=== PATIENT | female | born 1985 | race Caucasian/White ===

== ENCOUNTER → 2024-02-05 10:03 | Outpatient (REF) | payer OTHER, SELFPAY | LOC: WDC 10:03 | PROVIDERS: ATTENDING PHYSICIAN Student in an Organized Health Care Education/Training Program | DX: N64.89 Other specified disorders of breast (principal) | CPT/HCPCS: 76642 ==

== ENCOUNTER 2024-05-21 06:19 | Day surgery (SDC) | payer OTHER, SELFPAY | END 2024-05-21 10:55 | disposition home or self-care (01) | LOC: GI 06:19 | PROVIDERS: ATTENDING PHYSICIAN Internal Medicine | DX: R19.4 Change in bowel habit (principal); K92.1 Melena; K64.8 Other hemorrhoids | CPT/HCPCS: 45380; 88305 ==

== ENCOUNTER 2024-07-28 08:51 | Emergency (ER) | payer OTHER, SELFPAY ==
[2024-07-28 08:55] VITALS: BP 121/81
--- NOTE | 2024-07-28 09:15 | ED.GENMED ---
History of Present Illness
General
Chief Complaint: Back Pain
Source: patient
Exam Limitations: none
Time Seen by Provider: 07/28/24 09:03
History of Present Illness
History of Present Illness:
38yoF with no significant past medical history presenting with her for evaluation of low back pain. Patient has been having ongoing mild low back pain over the past 6 months or so. She picked up her 2-year-old child yesterday afternoon and
felt a pull in her lower back. She has been having worsening pain since then. She was unable to get out of bed this morning due to the pain and her had to assist her. Pain is worse with movement. Her pain was initially a 10/10 in
severity. She took 2 ibuprofen and pain is now down to a 7/10 in severity. Pain is nonradiating. She is otherwise asymptomatic and denies any fevers, abdominal pain, dysuria, incontinence, saddle anesthesia. No weakness, numbness, or pain in her
lower extremities. No prior history of malignancy or IV drug use. No prior back surgeries. Of note, patient was seen by her PCP last week who gave her a script to have outpatient lumbar spine x-rays done.
Phy Exam
General Physical Exam
General Presentation: well appearing and no apparent distress
General Skin: warm and dry
General Habitus: normal
General Mental: alert
ENT Exam
ENT Exam: normocephalic
Cardiovascular Exam
Cardiovascular Exam: normal peripheral pulses (2+ PT pulses bilaterally)
Pulmonary Exam
Pulmonary Exam: no respiratory distress
Gastrointestinal Exam
Gastrointestinal Exam: non tender, soft, non distended and no cva tenderness
Neurological Exam
Neurological Exam: alert and no motor deficits (5/5 strength in lower extremities)
Christos Coma Scale
Eye Opening: Spontaneous
Verbal Response: Oriented
Motor Response: Obeys Commands
GCS Total Score: 15
Musculoskeletal Exam
Musculoskeletal Exam: other (No tenderness to palpation of lumbar region. Pain elicited with movement of trunk. No skin changes.)
Skin Exam
Skin Exam: normal color and warm/dry
Psychiatric Exam
Psychiatric Exam: normal mood/affect
Course
Orders/Labs/Results
Orders:
Orders
07/28/24 09:14
Lidocaine [Lidocaine 4% Patch] 1 patch TOPICAL NOW STA
Apply Lidocaine patch(s) to:: low back
CR Lumbar Spine Comp Min 4 Vw* Urgent
Comment:
Reason For Exam: low back pain
07/28/24 09:55
Acetaminophen [Tylenol] 1,000 mg PO NOW STA
Cyclobenzaprine HCl [Flexeril] 10 mg PO NOW STA
Ibuprofen [Motrin] 400 mg PO NOW STA
Vital Signs
Initial and Last Documented VS:
Initial Vital Signs
Temp Pulse Resp BP Pulse Ox
98.3 F 69 16 121/81 100
07/28/24 08:55 07/28/24 08:55 07/28/24 08:55 07/28/24 08:55 07/28/24 08:55
Last Documented Vital Signs
Temp Pulse Resp BP Pulse Ox
97.6 F 82 20 126/81 99
07/28/24 10:42 07/28/24 10:42 07/28/24 10:42 07/28/24 10:42 07/28/24 10:42
MDM/Problems Addressed
Differential Diagnosis Includes:
38yoF here with low back pain. Worse since lifting her child yesterday. Improved with ibuprofen. No red flags in history including no fevers, saddle anesthesia, incontinence, hx of IVDU. VSS. She is non-toxic appearing. There is no tenderness to
palpation the lumbar spine. Lower extremities neurovascularly intact. Differential diagnosis includes: muscle strain/spasm, doubt fracture
Initial ED plan: Very low clinical suspicion for fracture but patient was scheduled to have outpatient lumbar spine x-rays so will obtain. Ibuprofen, Tylenol, Flexeril, and lidocaine patch for pain.
*Critical Care Note
Total Time (30-74mins, 75-104mins- exclusive of procedures): Not Applicable
Update Note
Update Note:
X-rays negative for fractures. Pain down to a 3/10 on reassessment. Clinical presentation consistent with a lumbosacral strain. Supportive care discussed and prescription given for Flexeril. Advised f/u with PCP. Patient discharged in stable
condition.
ED Attending Note
-
Portions of this chart may have been created with voice recognition software.� Occasional wrong word or��sound alike� substitutions may have occurred due to the inherent limitations of voice recognition software.
Discharge Plan
Departure
Patient Disposition: Home (Routine Discharge)
Date of Disposition: 07/28/24
Time of Disposition: 10:55
Patient with high blood pressure during this ER visit?: No
Discharge Problem:
Lumbar strain
Instructions: Low back pain - ED discharge instructions
Prescriptions:
New
cyclobenzaprine 10 mg tablet
10 mg PO Q8H PRN (Reason: muscle spasms) Qty: 20 0RF
No Action
acetaminophen 325 mg Tablet
650 mg PO Q4HPRN PRN (Reason: mild pain) Qty: 30 0RF
ibuprofen 600 mg Tablet
600 mg PO Q6HPRN PRN (Reason: cramps) Qty: 30 0RF
Referrals:
Hallie Mcnair PA-C [Family Provider] -
Activity Restrictions/Additional Instructions:
Take Tylenol 650mg and ibuprofen 600mg every 6 hours as needed for pain. Use lidocaine patches daily (12 hours on, 12 hours off). Take Flexeril (muscle relaxer) as needed for spasms.
Please follow-up with your family doctor this week. Return to the ER with any new or worsening symptoms.
Interventions
Interventions:
*Risk Screen - Suicide Last Done: 07/28/24 10:42
*General Assessment Last Done: 07/28/24 10:42
*Neglect/Abuse Screening Last Done: 07/28/24 10:42
*ED- Fall Risk Assessment Last Done: 07/28/24 10:42
*ED COVID-19 Vaccine History Last Done: 07/28/24 10:42
*Nursing Disposition Last Done: 07/28/24 11:26
ED-Musculoskeletal Assessment Last Done: 07/28/24 10:42
Discharge Date and Time
Discharge Date/Time: 07/28/24 11:28
Print Language: HUNGARIAN
[2024-07-28 09:55] VITALS: BMI 25.8
[2024-07-28 10:00] VITALS: BP 114/76
[2024-07-28] MEDS: FLEXERIL 10 MG PO (10:31)
[2024-07-28] MEDS: TYLENOL 1000 MG PO (10:31)
[2024-07-28] MEDS: MOTRIN 400 MG PO (10:32)
[2024-07-28] MEDS: LIDOCAINE 4% PATCH 1 PATCH TOPICAL (10:32)
[2024-07-28 10:42] VITALS: BP 126/81
== END 2024-07-28 11:28 | disposition home or self-care (01) ==
LOC: EMR 08:51
PROVIDERS: EMERGENCY PHYSICIAN Emergency Medicine; FAMILY PHYSICIAN Student in an Organized Health Care Education/Training Program
DX: S39.012A Strain of muscle, fascia and tendon of lower back, initial encounter (principal); X58.XXXA Exposure to other specified factors, initial encounter
CPT/HCPCS: 99283; 72110

== ENCOUNTER → 2024-08-06 14:01 | Outpatient (REF) | payer OTHER, SELFPAY | LOC: WDC 14:01 | PROVIDERS: ATTENDING PHYSICIAN Student in an Organized Health Care Education/Training Program | DX: N64.4 Mastodynia (principal) | CPT/HCPCS: 76642; 77063; 77067 ==

== ENCOUNTER → 2025-01-31 09:13 | Outpatient (REF) | payer OTHER, SELFPAY | LOC: WDC 09:13 | PROVIDERS: ATTENDING PHYSICIAN Obstetrics & Gynecology Gynecology; FAMILY PHYSICIAN Physician Assistant Medical | DX: N64.4 Mastodynia (principal) | CPT/HCPCS: 76642; 77061; 77065 ==